=== PATIENT | female | born 1960 | race American Indian/Alaskan Native ===

== ENCOUNTER 2017-07-30 12:02 | Day surgery (SDC) | payer BC ==
[~2017-07-30 12:02] MED LIST: ANCEF/STERILE WATER 2 GM/20 ML IV NR
[2017-07-30] MEDS ORDERED: NACL BACTERIOSTATIC INFILTRATI ONE (13:04)
[2017-07-30] MEDS ORDERED: PEPCID IV SCH (13:45)
--- NOTE | 2017-07-30 13:58 | Anesthesia Consultation ---
Anesthesia Consult and Med Hx Date of service: 07/30/17 - Airway Anesthetic Teeth Evaluation: Good, Bridges ROM Head & Neck: Adequate Mental/Hyoid Distance: Adequate Mallampati Class: Class II Intubation Access Assessment: Probably Good - Pulmonary Exam CTA: Yes - Cardiac Exam Cardiac Exam: RRR (cole) - Pre-Operative Health Status ASA Pre-Surgery Classification: ASA2 Proposed Anesthetic Plan: General - Pre-Anesthesia Comment Pre-Anesthesia Comments: The patient indicated a history of PONV - Pulmonary Hx Smoking: No Hx Sleep Apnea: No (MARK PRE SCREEN LOW RISK.) - Cardiovascular System Hx Hypertension: Yes (X 7 MONTHS) - Gastrointestinal Hx Gastroesophageal Reflux Disease: Yes - Endocrine Hx Hypothyroidism: Yes (ON MEDS) - Hematic Hx Anemia: Yes (NOT RECENT) - Other Systems Hx Cancer: No
--- NOTE | 2017-07-30 13:58 | Anesthesia Day of Surgery ---
Anesthesia Day of Surgery - Day of Surgery Patient Examined: Yes Patient H&P Reviewed: Yes Patient is NPO: Yes
[2017-07-30] MEDS ORDERED: XYLOCAINE MPF 2% ONE (14:00)
[2017-07-30] MEDS ORDERED: TRANSDERM-SCOP TD NR (14:00)
[2017-07-30] MEDS ORDERED: VERSED IV NR (14:00)
[2017-07-30] MEDS ORDERED: NACL 0.9% 1000 ML 1,000 ML IV SCH (14:00)
[2017-07-30] MEDS ORDERED: SUBLIMAZE ONE (14:01)
[2017-07-30] MEDS ORDERED: DIPRIVAN 10 MG/ML IV ONE (14:01)
[2017-07-30] MEDS ORDERED: DILAUDID IV PRN (14:06)
[2017-07-30] MEDS ORDERED: ZOFRAN IV PRN (14:06)
[2017-07-30] MEDS ORDERED: WATER FOR IRRIG STERILE IR ONE ×3 (14:33)
[2017-07-30] MEDS ORDERED: OMNIPAQUE (300 MG) IR ONE (14:33)
--- NOTE | 2017-07-30 14:51 | Short Stay Summary ---
Short Stay Documentation Date of service: 07/30/17 - History H&P: obtained from office - Allergies and Medications Current Medications: Allergies No Known Allergies Allergy (Verified 07/21/17 13:53) Home Medications Medication Instructions Recorded Confirmed Last Taken Type Hydrochlorothiazide [Hctz] 12.5 mg PO QDAY 07/21/17 07/21/17 Unknown History Levothyroxine Sodium [Synthroid] 175 mcg PO DAILY 07/21/17 07/21/17 Unknown History Progesterone, Micronized 200 mg PO QPM 07/21/17 07/21/17 Unknown History [Progesterone] Active Medications Cefazolin Sodium (Ancef/Sterile Water 2 Gm/20 Ml) 2 gm IV PREOP NR Stop: 07/30/17 23:59 Famotidine (Pepcid) 20 mg IV PREOP AMNA Stop: 07/30/17 23:59 Hydromorphone HCl (Dilaudid) 0.5 mg IV Q10MIN PRN PRN Reason: Pain , Severe (7-10) Sodium Chloride (Nacl 0.9% 1000 Ml) 1,000 mls @ 75 mls/hr IV DIRECT AMNA Ondansetron HCl (Zofran) 4 mg IV ONCE PRN PRN Reason: Nausea And Vomiting Scopolamine (Transderm-Scop) 1 each TD PREOP NR Stop: 07/30/17 23:59 - Brief post op/procedure progress note Date of procedure: 07/30/17 Pre-op diagnosis: pelvic pain, recurrent uti Post-op diagnosis: same Procedure: cysto, urethral dilation, rpg, hydrodistention, cystogram Anesthesia: GETA Surgeon: POLO JONES Estimated blood loss: none Condition: stable - Hospital course Hospital course: cipro, damon, cesar on chart - Disposition Condition at discharge: Stable Disposition: DC-01 TO HOME OR SELFCARE Short Stay Discharge Plan Follow up with: YUDELKA GARZA MD [Primary Care Provider] - 7 Days
[2017-07-30 15:41] VITALS: BP 136/89
[2017-07-30] MEDS ORDERED: DECADRON ONE (15:41)
[2017-07-30] MEDS ORDERED: ZOFRAN ONE (15:41)
--- NOTE | 2017-07-31 08:26 | Fluoroscopy Report ---
FLUOROSCOPY CYSTOGRAM STATIC, ONE VIEW History: Nephrolithiasis, hematuria. Findings: Fluoroscopy was provided by radiology during cystogram by urology. One fluoroscopic image was captured which demonstrates the bladder distended with contrast. A Padilla catheter is in place. There is no gross filling defect, wall abnormality or extravasation. Correlate with the procedural report as needed. Impression: Normal AP view of the bladder.
--- NOTE | 2017-08-08 18:14 | Operative Report ---
PREOPERATIVE DIAGNOSIS: Recurrent urinary tract infection. POSTOPERATIVE DIAGNOSIS: Interstitial cystitis. PROCEDURES: Cystoscopy, bilateral retrograde pyelograms, urethral dilatation, hydrodistention, cystogram. SURGEON: Donte Riley M.D. ANESTHESIA: General. ESTIMATED BLOOD LOSS: Minimal. FLUIDS: Crystalloid. COMPLICATIONS: No complications. INDICATIONS: This patient is a 56-year-old female seen in the office for recurrent urinary tract infections and dysuria. CT of abdomen and pelvis was unremarkable. She presents now for surgical intervention. DESCRIPTION OF PROCEDURE: The patient was taken to the operative suite, placed in a supine position. After adequate general anesthesia, placed in a dorsal lithotomy position, prepped and draped in a sterile fashion. Pancystourethroscopy was performed with 22-Tunisian Storz cystoscope. No bladder pathology. No tumors or stones were noted. Mild urethral stenosis, which was dilated to 28-Tunisian without difficulty. Bilateral retrograde pyelograms were obtained with an 8 [place] catheter and 8 mL of contrast. No filling defects or obstruction. Hydrodistention to a bladder capacity of 600 mL was performed. On reevaluation, obvious petechiae, hemorrhage could be appreciated in 3/4 quadrants consistent with interstitial cystitis. Bladder was drained. She was extubated and taken to recovery room. She will go home on Cipro, Ultram and [place]. JOB# [id number] THOMAS/ADOLFO
--- NOTE | 2017-08-12 07:33 | Fluoroscopy Report ---
FLUOROSCOPY RETROGRADE UROGRAPHY: HISTORY: Nephrolithiasis, hematuria. FINDINGS: Fluoroscopy was provided by radiology during retrograde urography by the urologist. 10 fluoroscopic images were captured. There is adequate filling of the ureters and intrarenal collecting systems with no filling defects or anatomic abnormalities identified. Please correlate with the procedural report if needed. IMPRESSION: Retrograde pyelograms within normal limits.
== END 2017-07-30 16:04 | disposition home or self-care (01) ==
LOC: OR 12:02
PROVIDERS: ATTEND Urology
DX: N30.10 Interstitial cystitis (chronic) without hematuria (principal); I10 Essential (primary) hypertension; K21.9 Gastro-esophageal reflux disease without esophagitis; E03.9 Hypothyroidism, unspecified; Z79.899 Other long term (current) drug therapy
CPT/HCPCS: 36415; 52260; 74420; 74430; 84132; A4217; C1758; J0690; J1100; J2250; J2405; J2704; J7030; Q9967; J3010